=== PATIENT | male | born 1935 | race Caucasian/White ===

== ENCOUNTER 2020-03-20 23:55 | Inpatient (IN) | payer OTHER, SELFPAY ==
[~2020-03-20] VITALS: Ht 172.7 cm; Wt 80.7 kg
[2020-03-21] VITALS: BP 124/83
[2020-03-21] MEDS ORDERED: DEXAMETHASONE 10 MG/ML VIAL IVP ONE (00:20)
[2020-03-21] MEDS ORDERED: LEVOFLOXACIN 750 MG/D5W PREMIX 150 ML IV ONE (00:20)
[2020-03-21 00:38] LABS: BASOPHILS % (AUTO) 0.2 % (0.0-2.0); EOSINOPHILS % (AUTO) 0.2 % (0.0-4.0); HEMATOCRIT 42.9 % (36-52); HEMOGLOBIN 14.5 g/dL (12.0-18.0); LYMPHOCYTES # (AUTO) 0.6 K/uL (2.0-11.5); LYMPHOCYTES % (AUTO) 11.7 % (20.5-51.1); MEAN CORPUSCULAR HEMOGLOBIN 31 pg (27-31); MEAN CORPUSCULAR HGB CONC 34 g/dL (33-37); MEAN CORPUSCULAR VOLUME 90.2 fL (80-94); MONOCYTES # (AUTO) 0.3 K/uL (0.8-1.0); MONOCYTES % (AUTO) 6.7 % (1.7-9.3); NEUTROPHILS # (AUTO) 4.1 K/uL (1.8-7.7); NEUTROPHILS % (AUTO) 81.2 % (42.2-75.2); PLATELET COUNT (AUTO) 205 K/uL (140-450); RED BLOOD CELL COUNT(AUTO) 4.75 MIL/uL (4.20-6.10); RED CELL DISTRIBUTION WIDTH 12.9 % (11.6-13.7)
[2020-03-21 00:56] LABS: PROTHROMBIN TIME 10.5 secs (10.8-13.4)
[2020-03-21 01:12] LABS: ALBUMIN 3.2 g/dL (3.4-5.0); ANION GAP 9.5 (8-16); ASPARTATE AMINOTRANSFERASE 80 U/L (15-37); CARBON DIOXIDE 30.7 mmol/L (21-32); CHLORIDE 100 mmol/L (98-107); GLUCOSE 132 mg/dL (74-106); POTASSIUM 3.2 mmol/L (3.5-5.1); SODIUM SERUM 137 mmol/L (136-145); TOTAL BILIRUBIN 0.8 mg/dL (0.0-1.0); UREA NITROGEN, BLOOD 16 mg/dL (7-18)
[2020-03-21 01:15] LABS: LACTATE DEHYDROGENASE 253 U/L (85-227)
[2020-03-21] MEDS ORDERED: POTASSIUM CHLORIDE 10 MEQ TABER PO ONE (03:50)
[2020-03-21 06:50] LABS: APPEARANCE,URINE CLEAR (CLEAR); BILIRUBIN,URINE 1+ (NEGATIVE); BLOOD, URINE NEGATIVE (NEGATIVE); COLOR,URINE DARK YELLOW (YELLOW); LEUKOCYTE ESTERASE ,URINE NEGATIVE (NEGATIVE); NITRITE, URINE NEGATIVE (NEGATIVE); UGLUCOSE NEGATIVE (NEGATIVE)
[2020-03-21] MEDS ORDERED: MORPHINE SULFATE 2 MG/ML SYR IVP PRN (07:10)
[2020-03-21] MEDS ORDERED: HYDROcodone/APAP 5/325 MG 1 TAB TAB PO PRN (07:10)
[2020-03-21] MEDS ORDERED: ZOLPIDEM 5 MG TAB PO PRN (07:10)
[2020-03-21] MEDS ORDERED: AZITHROMYCIN 250 MG TAB PO ONE (07:10)
[2020-03-21] MEDS ORDERED: ALBUTEROL HFA MDI 90 MCG/ACTUATION 8 GM INH PRN (07:10)
[2020-03-21] MEDS ORDERED: LORazepam 2 MG/ML VIAL IM/IVP PRN (07:10)
[2020-03-21] MEDS ORDERED: ACETAMINOPHEN 325 MG TAB PO PRN (07:10)
[2020-03-21] MEDS ORDERED: DOCUSATE SODIUM 100 MG GELCAP PO PRN (07:10)
[2020-03-21] MEDS ORDERED: ONDANSETRON 4 MG/2 ML VIAL IVP PRN (07:10)
[2020-03-21 07:11] LABS: BASOPHILS % (AUTO) 0.3 % (0.0-2.0); EOSINOPHILS % (AUTO) 0.4 % (0.0-4.0); HEMATOCRIT 42.6 % (36-52); HEMOGLOBIN 14.2 g/dL (12.0-18.0); LYMPHOCYTES # (AUTO) 0.4 K/uL (2.0-11.5); LYMPHOCYTES % (AUTO) 10.9 % (20.5-51.1); MEAN CORPUSCULAR HEMOGLOBIN 30 pg (27-31); MEAN CORPUSCULAR HGB CONC 33 g/dL (33-37); MEAN CORPUSCULAR VOLUME 91.1 fL (80-94); MONOCYTES # (AUTO) 0.2 K/uL (0.8-1.0); MONOCYTES % (AUTO) 6.5 % (1.7-9.3); NEUTROPHILS # (AUTO) 2.6 K/uL (1.8-7.7); NEUTROPHILS % (AUTO) 81.9 % (42.2-75.2); PLATELET COUNT (AUTO) 186 K/uL (140-450); RED BLOOD CELL COUNT(AUTO) 4.68 MIL/uL (4.20-6.10); RED CELL DISTRIBUTION WIDTH 13.1 % (11.6-13.7); WHITE BLOOD COUNT (AUTO) 3.2 K/uL (4.8-10.8)
[2020-03-21 07:17] LABS: RBC,URINE 0-5 /HPF (0-5); WBC,URINE 0-5 /HPF (0-5)
[2020-03-21 07:36] LABS: ANION GAP 14.3 (8-16); ASPARTATE AMINOTRANSFERASE 67 U/L (15-37); CARBON DIOXIDE 27.7 mmol/L (21-32); CHLORIDE 101 mmol/L (98-107); CREATININE 0.8 mg/dL (0.6-1.3); GLUCOSE 168 mg/dL (74-106); SODIUM SERUM 139 mmol/L (136-145); TOTAL BILIRUBIN 0.6 mg/dL (0.0-1.0); UREA NITROGEN, BLOOD 14 mg/dL (7-18)
[2020-03-21] MEDS: NACL 0.9% 1,000 ML IV SCH ×2 (07:47→17:49)
[2020-03-21] MEDS ORDERED: cefTRIAXone 1,000 MG VIAL ONE (07:48)
[2020-03-21] MEDS: VITAMIN D 400 IU TAB PO SCH (08:04)
[2020-03-21] MEDS: ASCORBIC ACID 500 MG TAB PO SCH ×2 (08:05→22:03)
[2020-03-21] MEDS: ZINC SULF 220 MG CAP PO SCH ×2 (08:05→21:00)
[2020-03-21] MEDS: ENOXAPARIN 40 MG/0.4 ML SYR SUBQ SCH (08:06)
[2020-03-21 08:27] LABS: CHOL/HDL RATIO 2.9 (1-4.5); FREE T4 (FREE THYROXINE) 1.24 ng/dL (0.76-1.46); MAGNESIUM 2.2 mg/dL (1.8-2.4); THYROID STIMULATING HORMONE 0.27 uIU/mL (0.34-3.74)
[2020-03-21 12:00] VITALS: BP 142/79
[2020-03-21 16:00] VITALS: BP 127/74
[2020-03-21] MEDS ORDERED: ALBUTEROL SULFATE/IPRATROPIU 3 ML SOL IH SCH (19:30)
[2020-03-21 20:00] VITALS: BP 144/79
[2020-03-21] MEDS: HYDROcodone/APAP 10/325 MG 1 TAB TAB PO SCH (22:03)
[2020-03-22] VITALS: BP 111/62
[2020-03-22] MEDS: NACL 0.9% 1,000 ML IV SCH ×3 (03:10→23:10)
[2020-03-22 04:00] VITALS: BP 128/71
[2020-03-22 06:40] LABS: HEMATOCRIT 39.8 % (36-52); HEMOGLOBIN 13.7 g/dL (12.0-18.0); LYMPHOCYTES # (AUTO) 0.6 K/uL (2.0-11.5); LYMPHOCYTES % (AUTO) 9.4 % (20.5-51.1); MEAN CORPUSCULAR HEMOGLOBIN 31 pg (27-31); MEAN CORPUSCULAR HGB CONC 34 g/dL (33-37); MEAN CORPUSCULAR VOLUME 90.9 fL (80-94); MONOCYTES # (AUTO) 0.4 K/uL (0.8-1.0); MONOCYTES % (AUTO) 6.7 % (1.7-9.3); NEUTROPHILS # (AUTO) 5.3 K/uL (1.8-7.7); NEUTROPHILS % (AUTO) 83.9 % (42.2-75.2); PLATELET COUNT (AUTO) 204 K/uL (140-450); RED BLOOD CELL COUNT(AUTO) 4.38 MIL/uL (4.20-6.10); RED CELL DISTRIBUTION WIDTH 13.1 % (11.6-13.7); WHITE BLOOD COUNT (AUTO) 6.3 K/uL (4.8-10.8)
[2020-03-22] MEDS: PANTOPRAZOLE 40 MG TABEC PO SCH (06:40)
[2020-03-22 07:09] LABS: ALBUMIN 2.8 g/dL (3.4-5.0); ANION GAP 8.3 (8-16); ASPARTATE AMINOTRANSFERASE 44 U/L (15-37); CHLORIDE 104 mmol/L (98-107); CREATININE 0.8 mg/dL (0.6-1.3); GLUCOSE 133 mg/dL (74-106); LACTATE DEHYDROGENASE 208 U/L (85-227); MAGNESIUM 2.3 mg/dL (1.8-2.4); PHOSPHORUS 3.7 mg/dL (2.5-4.9); SODIUM SERUM 141 mmol/L (136-145); TOTAL BILIRUBIN 0.4 mg/dL (0.0-1.0); UREA NITROGEN, BLOOD 17 mg/dL (7-18)
[2020-03-22 07:35] LABS: CARBON DIOXIDE 29.6 mmol/L (21-32)
[2020-03-22 08:00] VITALS: BP 118/69
[2020-03-22] MEDS: VITAMIN D 400 IU TAB PO SCH (08:58)
[2020-03-22] MEDS: ASCORBIC ACID 500 MG TAB PO SCH (09:00)
[2020-03-22] MEDS: ZINC SULF 220 MG CAP PO SCH ×2 (09:00→21:37)
[2020-03-22] MEDS: AZITHROMYCIN 250 MG TAB PO SCH (09:01)
[2020-03-22] MEDS: HYDROcodone/APAP 10/325 MG 1 TAB TAB PO SCH ×2 (09:01→21:37)
[2020-03-22] MEDS: ENOXAPARIN 40 MG/0.4 ML SYR SUBQ SCH (09:02)
[2020-03-22 12:00] VITALS: BP 93/57
[2020-03-22] MEDS ORDERED: remdesivir CLINICAL MONITORING 1 EA MISC MC PRN (15:00)
[2020-03-22 16:00] VITALS: BP 115/72
[2020-03-22] MEDS ORDERED: REMDESIVIR (EUA) 200 MG in NACL 0.9% 100 ML IV SCH (16:00)
[2020-03-22 20:00] VITALS: BP 143/80
[2020-03-23] VITALS: BP 116/72
[2020-03-23 04:00] VITALS: BP 125/92
[2020-03-23 06:49] LABS: EOSINOPHILS % (AUTO) 0.1 % (0.0-4.0); HEMATOCRIT 34.8 % (36-52); HEMOGLOBIN 11.9 g/dL (12.0-18.0); LYMPHOCYTES # (AUTO) 0.6 K/uL (2.0-11.5); LYMPHOCYTES % (AUTO) 11.2 % (20.5-51.1); MEAN CORPUSCULAR HEMOGLOBIN 31 pg (27-31); MEAN CORPUSCULAR HGB CONC 34 g/dL (33-37); MEAN CORPUSCULAR VOLUME 90.3 fL (80-94); MONOCYTES # (AUTO) 0.4 K/uL (0.8-1.0); NEUTROPHILS # (AUTO) 4.4 K/uL (1.8-7.7); NEUTROPHILS % (AUTO) 81.7 % (42.2-75.2); PLATELET COUNT (AUTO) 217 K/uL (140-450); RED BLOOD CELL COUNT(AUTO) 3.85 MIL/uL (4.20-6.10); RED CELL DISTRIBUTION WIDTH 12.9 % (11.6-13.7); WHITE BLOOD COUNT (AUTO) 5.4 K/uL (4.8-10.8)
[2020-03-23] MEDS: PANTOPRAZOLE 40 MG TABEC PO SCH (07:27)
[2020-03-23 07:32] LABS: ANION GAP 13.1 (8-16); CARBON DIOXIDE 28.4 mmol/L (21-32); CHLORIDE 104 mmol/L (98-107); CREATININE 0.7 mg/dL (0.6-1.3); GLUCOSE 103 mg/dL (74-106); POTASSIUM 3.5 mmol/L (3.5-5.1); SODIUM SERUM 142 mmol/L (136-145); UREA NITROGEN, BLOOD 13 mg/dL (7-18)
[2020-03-23 08:00] VITALS: BP 130/64
[2020-03-23] MEDS ORDERED: COMMUNICATION ORDER MC SCH (09:00)
[2020-03-23] MEDS: ASCORBIC ACID 500 MG TAB PO SCH (09:35)
[2020-03-23] MEDS: VITAMIN D 400 IU TAB PO SCH (09:35)
[2020-03-23] MEDS: AZITHROMYCIN 250 MG TAB PO SCH (09:36)
[2020-03-23] MEDS: ZINC SULF 220 MG CAP PO SCH (09:36)
[2020-03-23] MEDS: HYDROcodone/APAP 10/325 MG 1 TAB TAB PO SCH (09:36)
[2020-03-23] MEDS: ENOXAPARIN 40 MG/0.4 ML SYR SUBQ SCH (09:44)
[2020-03-23] MEDS: NACL 0.9% 1,000 ML IV SCH (09:44)
[2020-03-23 10:46] LABS: ALBUMIN 2.5 g/dL (3.4-5.0); BILIRUBIN,DIRECT 0.1 mg/dL (0.0-0.3); TOTAL BILIRUBIN 0.3 mg/dL (0.0-1.0)
[2020-03-23] MEDS ORDERED: APIX2.5 PO (11:30)
[2020-03-23] MEDS ORDERED: DEC1 PO (11:30)
[2020-03-23] MEDS ORDERED: AZIT250T3 PO (11:30)
[2020-03-23 12:00] VITALS: BP 116/86
[2020-03-23 14:19] VITALS: BP 116/86
[2020-03-23] MEDS ORDERED: REMDESIVIR (EUA) 100 MG in NACL 0.9% 100 ML IV SCH (17:00)
== END 2020-03-23 15:15 | DRG 177 ==
LOC: MED 23:55 → MTU 03-21 03:49
PROVIDERS: ADMIT Family Medicine; ATTEND Family Medicine
PROC: XW033E5 Introduction of Remdesivir Anti-infective into Peripheral Vein, Percutaneous Approach, New Technology Group 5 (ICD-10-PCS; principal; 2020-03-22)
DX: U07.1 COVID-19 (principal); J12.82 Pneumonia due to coronavirus disease 2019; J96.01 Acute respiratory failure with hypoxia; E44.0 Moderate protein-calorie malnutrition; J44.0 Chronic obstructive pulmonary disease with (acute) lower respiratory infection; R73.9 Hyperglycemia, unspecified; E05.90 Thyrotoxicosis, unspecified without thyrotoxic crisis or storm; Z96.649 Presence of unspecified artificial hip joint; I25.10 Atherosclerotic heart disease of native coronary artery without angina pectoris; Z96.659 Presence of unspecified artificial knee joint; E87.6 Hypokalemia; K21.9 Gastro-esophageal reflux disease without esophagitis; Z68.27 Body mass index [BMI] 27.0-27.9, adult; Z88.6 Allergy status to analgesic agent; Z88.4 Allergy status to anesthetic agent; Z88.0 Allergy status to penicillin; Z79.899 Other long term (current) drug therapy; Z87.891 Personal history of nicotine dependence
CPT/HCPCS: 36415; 71045; 80048; 80053; 80076; 81001; 82150; 82550; 82728; 83036; 83605; 83615; 83690; 83735; 83880; 84100; 84439; 84443; 84484; 85025; 85379; 85384; 85610; 85651; 85730; 86140; 87040; 87081; 87086; 87804; 93005; 96365; 96375; 97110; 97116; 97161-GP; 97530; 99291; J0696; J1100; J1650; J1956; J7030; J7060; U0003

== ENCOUNTER 2021-02-11 16:02 | Emergency (ER) | payer MEDICARE, OTHER ==
[~2021-02-11] VITALS: Ht 172.7 cm; Wt 73.0 kg
[~2021-02-11 16:02] MED LIST: ACET-8386 PO; ALBU0.0912 INH; BISA-218 RC; CALC-1646 PO; CHOL400T7 PO; FINA5TAB1 PO; FLONAS NS; FORM11 IH; IPRA3AMP2 IH; MAGN400S60 PO; METH1TAB50 PO; METO25TE2 PO; MULT-2253 PO; NA P133N1 RC; NITR0.4T2 SL; OMEP20EC11 PO; SAW1CAPS7 PO; TAMS0.4C96 PO; [UNRECOGNIZED DRUG - CODE] PO
[2021-02-11 17:17] VITALS: BP 143/77
--- NOTE | 2021-02-11 17:25 | NUR ---
right hand cleaned and wrapped at this time
[2021-02-11] MEDS ORDERED: BACITRACIN OINT 500 UNITS/GM PKT TP ONE (17:55)
[2021-02-11] MEDS ORDERED: AZIT250T4 PO (18:02)
[2021-02-11] MEDS ORDERED: BACI1PAC6 TP (18:02)
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
[2021-02-11 18:44] VITALS: BP 143/77
--- NOTE | 2021-02-11 18:44 | NUR ---
Patient discharged with v/s stable. Written and verbal after care instructions given and explained. Patient alert, oriented and verbalized understanding of instructions. Ambulatory with steady gait. All questions addressed prior to discharge. ID band removed. Patient advised to follow up with PMD. Rx of Azithromycin given. Patient educated on indication of medication including possible reaction and side effects. Opportunity to ask questions provided and answered.
[2021-02-13] MEDS ORDERED: AZIT250T4 PO (16:30)
== END 2021-02-11 18:44 | disposition home or self-care (01) ==
LOC: MED 16:02
DX: S61.011A Laceration without foreign body of right thumb without damage to nail, initial encounter (principal); S61.210A Laceration without foreign body of right index finger without damage to nail, initial encounter; J44.9 Chronic obstructive pulmonary disease, unspecified; I10 Essential (primary) hypertension; Z98.890 Other specified postprocedural states; Z79.899 Other long term (current) drug therapy; Z88.0 Allergy status to penicillin; Z88.6 Allergy status to analgesic agent; Z88.8 Allergy status to other drugs, medicaments and biological substances; W53.21XA Bitten by squirrel, initial encounter; Y93.89 Activity, other specified; Y92.89 Other specified places as the place of occurrence of the external cause; Y99.8 Other external cause status
CPT/HCPCS: 90471; 90715; 99283

== ENCOUNTER 2023-11-02 09:16 | Emergency (ER) | payer BC, MEDICARE ==
[~2023-11-02] VITALS: Ht 172.7 cm; Wt 69.4 kg
[~2023-11-02 09:16] MED LIST changes: -ACET-8386 PO; +ACET-8905 PO; +AZIT250T4 PO; +BACI-418 TP; -BISA-218 RC; +BISA-279 RC; +FINA-54 PO; -FINA5TAB1 PO; -FORM11 IH; +MOME13HF8 IH
[2023-11-02 09:34] VITALS: BP 121/61; PULSE 66; RESP 17; TEMP 97.5; O2SAT 99
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
[2023-11-02 11:03] VITALS: BP 121/61; PULSE 66; RESP 17; TEMP 97.5; O2SAT 99
--- NOTE | 2023-11-02 11:05 | NUR ---
Patient discharged with v/s stable. Written and verbal after care instructions given and explained. Patient verbalized understanding. Ambulatory with steady gait. All questions addressed prior to discharge. Advised to follow up with PMD.
== END 2023-11-02 11:05 | disposition home or self-care (01) ==
LOC: MED 09:16
DX: L76.22 Postprocedural hemorrhage of skin and subcutaneous tissue following other procedure (principal); J44.9 Chronic obstructive pulmonary disease, unspecified; I10 Essential (primary) hypertension; Z79.899 Other long term (current) drug therapy; Z88.0 Allergy status to penicillin; Z88.8 Allergy status to other drugs, medicaments and biological substances
CPT/HCPCS: 99281